=== PATIENT | female | born 1995 | race Caucasian/White ===

== ENCOUNTER 2023-09-14 14:33 | Emergency (ER) | payer BC, SELFPAY ==
[2023-09-14 14:35] VITALS: BP 150/91
[2023-09-14 14:55] LABS: % Basophils 0.5 % (0-2); % Eosinophils 0.4 % (0-6); % Immature Granulocytes 0.4 % (0-0.5); % Monocytes 5.9 % (1.7-9.3); % Neutrophils 79.8 % (42.2-75.2); Absolute Basophils 0.1 10^3/uL (0-0.2); Absolute Eosinophils 0.1 10^3/uL (0-0.7); Absolute Immature Granulocytes 0.1 10^3/uL (0-0.05); Absolute Lymphocytes 2.1 10^3/uL (1.2-3.4); Absolute Neutrophils 12.9 10^3/uL (1.4-6.5); Hematocrit 42.3 % (37.0-47.0); Hemoglobin 13.5 g/dL (12.0-16.0); Mean Corp Hgb Conc. 31.9 g/dL (33.0-37.0); Mean Corpuscular Hgb 26.3 pg (27.0-31.0); Mean Corpuscular Volume 82.3 fL (81.0-99.0); Nucleated Red Blood Cells % 0 %; Platelet Count 333 10^3/uL (130-400); Red Blood Cell Count 5.14 10^6/uL (4.20-5.40); Red Cell Dist. Width 14.6 % (11.5-14.5); Urine Albumin 2+ (Neg - Trace); Urine Bilirubin Negative (Negative); Urine Character Clear (Clear); Urine Color Yellow; Urine Glucose Negative (Negative); Urine Ketone Negative (Negative); Urine Leukocyte 2+ (Negative); Urine Nitrite Negative (Negative); Urine Occult Blood 1+ (Negative); Urine Specific Gravity 1.025 (<1.030); Urine Urobilinogen Negative (Neg - 1+); White Blood Cell Count 16.2 10^3/uL (4.8-10.8)
[2023-09-14 15:03] LABS: HCG, Serum Qualitative Screen Negative
[2023-09-14 15:06] LABS: ALT (SGPT) 26 U/L (0-35); AST (SGOT) 21 U/L (14-36); Albumin 4.1 g/dl (3.5-5.0); Alkaline Phosphatase 69 U/L (38-126); Blood Urea Nitrogen 13 mg/dl (7-17); Calcium 9.1 mg/dl (8.4-10.2); Carbon Dioxide 26 mmol/L (22-30); Chloride 106 mmol/L (98-107); Glucose 90 mg/dl (70-99); Potassium 3.7 mmol/L (3.5-5.1); Sodium 138 mmol/L (135-145); Total Bilirubin 0.3 mg/dl (0.2-1.3); Total Protein 6.7 g/dl (6.3-8.2); eGFR > 60.00
[2023-09-14 15:15] LABS: Urine Squamous Cell 16-20 /LPF (Few); Urine Urothelial Cell 0-2 /LPF (FEW)
[2023-09-14 15:16] LABS: Urine Bacteria Moderate (Negative); Urine Red Blood Cell 0-2 /HPF (0-2); Urine White Cell 30-40 /HPF (0-5)
--- NOTE | 2023-09-14 15:55 | ED.GENMED ---
History of Present Illness
General
Chief Complaint: Flank Pain
Source: patient
Exam Limitations: none
Time Seen by Provider: 09/14/23 15:38
Nursing documentation reviewed up to this point in time: agreed with
Travel History
Have you had any contact with someone who has COVID-19?: No
Do you have any symptoms of coronavirus? Fever > 100 degrees, chills, cough, shortness of breath, sore throat, loss of taste or smell, muscle aches, or headache?: No
History of Present Illness
History of Present Illness:
Patient to ED with complaint of left flank pain. Pain started this AM althought she reports feeling nauseated yesterday. No fever/chills. Has a history of kidney stones and pain feels the same. Follows with urology here. Brought self to ED for
eval.
Past History
Past History
ED Past Medical History: Psychiatric (Anxiety) and Other (Kidney stones, PCOS)
ED Past Surgical History: None
Social History
Tobacco: Non-smoker
Alcohol: None
Drug: None
Personal: Single
Living: with family
Employment: Employed
Family History
Family History: Other (Noncontributory)
Review of Systems
Review of Systems
Allergies reviewed?: Yes
All Other Systems: ROS reviewed and negative except as documented in HPI and ROS
Constitutional: Reports no symptoms
EENT: Reports no symptoms
Respiratory: Reports no symptoms
Cardiac: Reports no symptoms
ABD/GI: Reports nausea
: Reports flank pain
Musculoskeletal: Reports no symptoms
Skin: Reports no symptoms
Neurological: Reports no symptoms
Phy Exam
General Physical Exam
General Presentation: well appearing and no apparent distress
General age: appears stated age
General Skin: warm and dry
General Habitus: normal
General Mental: alert
Gastrointestinal Exam
Gastrointestinal Exam: normal bowel sounds, non tender, soft and no organomegaly
Musculoskeletal Exam
Musculoskeletal Exam: full ROM
Skin Exam
Skin Exam: normal color, warm/dry and no rash
Psychiatric Exam
Psychiatric Exam: normal mood/affect
Course
Orders/Labs/Results
Orders:
Orders
09/14/23 14:38
Test Result ONCE
09/14/23 14:43
Complete Blood Count/With Diff Urgent
Comprehensive Metabolic Panel Urgent
HCG, Serum Qualitative Screen Urgent
Urinalysis Reflex To Culture Urgent
Date Specimen was Collected: 09/14/23
Time Specimen was Collected: 14:38
Urine Microscopic Reflex Cult Urgent
Urine Culture Urgent
LUZ MARIA Source: U
Specimen Description:
Date Specimen was Collected: 09/14/23
Time Specimen was Collected: 14:38
09/14/23 15:50
CT Abd/pel Without Iv Or Oral Urgent
Comment:
Reason For Exam: left flank pain, kidney stone hx
09/14/23 18:25
Phenazopyridine HCl [Pyridium] 200 mg PO NOW STA
09/14/23 18:44
Ciprofloxacin HCl [Cipro] 250 mg PO NOW STA
Abnormal Lab Results
09/14/23
14:43
WBC 16.2 H 10^3/uL
(4.8-10.8)
MCH 26.3 L pg
(27.0-31.0)
MCHC 31.9 L g/dL
(33.0-37.0)
RDW 14.6 H %
(11.5-14.5)
MPV 12.0 H fL
(7.4-10.4)
Abs Immat Gran (auto) 0.1 H 10^3/uL
(0-0.05)
Absolute Neuts (auto) 12.9 H 10^3/uL
(1.4-6.5)
Absolute Monos (auto) 1.0 H 10^3/uL
(0.1-0.6)
Neutrophils % 79.8 H %
(42.2-75.2)
Lymphocytes % 13.0 L %
(20.5-51.1)
Ur Occult Blood Reflex 1+ A
(Negative)
Leukocyte Esterase Rfl 2+ A
(Negative)
Urine WBC (Reflex) 30-40 A /HPF
(0-5)
Urine Bacteria (Reflex) Moderate A
(Negative)
Urine Albumin (Reflex) 2+ A
(Neg - Trace)
09/14/23 14:43
09/14/23 14:43
Vital Signs
Initial and Last Documented VS:
Initial Vital Signs
Temp Pulse Resp BP Pulse Ox
97.9 F 92 20 150/91 97
09/14/23 14:35 09/14/23 14:35 09/14/23 14:35 09/14/23 14:35 09/14/23 14:35
Last Documented Vital Signs
Temp Pulse Resp BP Pulse Ox
97.9 F 92 20 150/91 97
09/14/23 14:35 09/14/23 14:35 09/14/23 14:35 09/14/23 14:35 09/14/23 14:35
*Radiology
Radiology exam reviewed: radiology read reviewed
*Pulse Oximetry
Patient hypoxic: no
*Critical Care Note
Total Time (30-74mins, 75-104mins- exclusive of procedures): Not Applicable
ED Attending Note
-
Portions of this chart may have been created with voice recognition software.� Occasional wrong word or��sound alike� substitutions may have occurred due to the inherent limitations of voice recognition software.
Discharge Plan
Departure
Patient Disposition: Home (Routine Discharge)
Date of Disposition: 09/14/23
Time of Disposition: 18:21
Patient with high blood pressure during this ER visit?: No
Condition: Good
Covid-19: Not Applicable
Discharge Problem:
UTI (urinary tract infection)
Instructions: Urinary Tract Infection, Adult ED
Prescriptions:
New
ciprofloxacin HCl [Cipro] 250 mg tablet
250 mg PO BID Qty: 10 0RF
phenazopyridine [Pyridium] 200 mg tablet
200 mg PO TID PRN (Reason: Pain) Qty: 6 0RF
No Action
escitalopram oxalate 20 MG tablet
20 mg PO DAILY
iron, carbonyl [Iron Chews] 15 MG tablet,chewable
65 mg PO DAILY
medroxyprogesterone [Provera] 10 mg tablet
10 mg PO BID Qty: 20 0RF
Referrals:
Tracey Martinez CRNP [Family Provider] - Follow up in 2-3 days
Activity Restrictions/Additional Instructions:
Return to the emergency department immediately for any changes in/worsening of your symptoms.
Interventions
Interventions:
*Risk Screen - Suicide Last Done: 09/14/23 18:13
*General Assessment Last Done: 09/14/23 18:13
*Neglect/Abuse Screening Last Done: 09/14/23 18:13
ED- Fall Risk Assessment Last Done: 09/14/23 18:49
*ED COVID-19 Vaccine History Last Done: 09/14/23 14:35
*Nursing Disposition Last Done: 09/14/23 18:49
ST-Hwdsey-Ektvgrwwau Assessment Last Done: 09/14/23 18:13
ED-Female Genitourinary Assessment Last Done: 09/14/23 18:13
Discharge Date and Time
Discharge Date/Time: 09/14/23 18:50
Print Language: CZECH
== END 2023-09-14 18:50 | disposition home or self-care (01) ==
LOC: EMR 14:33
PROVIDERS: EMERGENCY PHYSICIAN Emergency Medicine; FAMILY PHYSICIAN Nurse Practitioner
DX: R10.9 Unspecified abdominal pain (principal)
CPT/HCPCS: 99284; 74176; 80053; 81003; 81015; 84703; 85025; 87086

== ENCOUNTER 2024-07-25 17:46 | Emergency (ER) | payer BC, SELFPAY ==
[2024-07-25 17:48] VITALS: BP 155/112
[2024-07-25 18:08] LABS: Urine Albumin 3+ (Neg - Trace); Urine Bilirubin Negative (Negative); Urine Character Slightly Cloudy (Clear); Urine Color Yellow; Urine Glucose Negative (Negative); Urine Ketone Negative (Negative); Urine Leukocyte 3+ (Negative); Urine Nitrite Negative (Negative); Urine Occult Blood 1+ (Negative); Urine Urobilinogen Negative (Neg - 1+); Urine pH 6.5 (5.0-9.0)
[2024-07-25 18:18] LABS: Urine Squamous Cell >30 /LPF (Few)
[2024-07-25 18:20] LABS: Urine Bacteria Few (Negative); Urine White Cell 26-30 /HPF (0-5)
[2024-07-25 18:22] LABS: Urine Red Blood Cell 0-2 /HPF (0-2)
[2024-07-25 18:23] LABS: % Basophils 0.4 % (0-2); % Eosinophils 0.6 % (0-6); % Immature Granulocytes 0.3 % (0-0.5); % Lymphocytes 17.3 % (20.5-51.1); % Monocytes 7.6 % (1.7-9.3); % Neutrophils 73.8 % (42.2-75.2); Absolute Basophils 0.1 10^3/uL (0-0.2); Absolute Eosinophils 0.1 10^3/uL (0-0.7); Absolute Monocytes 0.9 10^3/uL (0.1-0.6); Absolute Neutrophils 8.4 10^3/uL (1.4-6.5); Hematocrit 46.1 % (37.0-47.0); Hemoglobin 14.8 g/dL (12.0-16.0); Mean Corp Hgb Conc. 32.1 g/dL (33.0-37.0); Mean Corpuscular Hgb 27.5 pg (27.0-31.0); Mean Corpuscular Volume 85.7 fL (81.0-99.0); Mean Platelet Volume 12.1 fL (7.4-10.4); Nucleated Red Blood Cells % 0 %; Platelet Count 274 10^3/uL (130-400); Red Blood Cell Count 5.38 10^6/uL (4.20-5.40); Red Cell Dist. Width 13.5 % (11.5-14.5); White Blood Cell Count 11.4 10^3/uL (4.8-10.8)
[2024-07-25 18:42] LABS: ALT (SGPT) 70 U/L (0-35); AST (SGOT) 33 U/L (14-36); Alkaline Phosphatase 75 U/L (38-126); Blood Urea Nitrogen 13 mg/dl (7-17); Calcium 9.6 mg/dl (8.4-10.2); Carbon Dioxide 28 mmol/L (22-30); Chloride 102 mmol/L (98-107); Glucose 83 mg/dl (70-99); Potassium 3.8 mmol/L (3.5-5.1); Sodium 138 mmol/L (135-145); Total Bilirubin 0.6 mg/dl (0.2-1.3); Total Protein 6.5 g/dl (6.3-8.2); eGFR > 60.00
[2024-07-25] MEDS: ROCEPHIN 1000 MG IV (21:19)
--- NOTE | 2024-07-25 21:48 | ED.GENMED ---
History of Present Illness
General
Chief Complaint: Flank Pain
Time Seen by Provider: 07/25/24 20:02
History of Present Illness
History of Present Illness:
29-year-old female presents the emergency department for evaluation of lower urinary tract voiding symptoms associate with right flank pain ongoing for the past week. She was seen at urgent care earlier in the onset of symptoms and was diagnosed
with a UTI, started on Cipro. She followed up the following day where she was noted to have slight increase in her serum creatinine, thus ciprofloxacin was discontinued in favor of Bactrim. She then received a phone call today informing her that
her urine culture was positive for strep B given her amoxicillin allergy was encouraged to come to the emergency department for alternative antibiotic therapy. Denies any fevers or chills. No hematuria. Has a past history of kidney stones but
states symptoms are distinctly different
Past History
Past History
ED Past Medical History: Psychiatric (Anxiety) and Other (Kidney stones, PCOS)
ED Past Surgical History: None
Social History
Tobacco: Non-smoker
Alcohol: None
Drug: None
Personal: Single
Living: with family
Employment: Employed
Family History
Family History: Other (Noncontributory)
Review of Systems
Review of Systems
Allergies reviewed?: Yes
All Other Systems: ROS reviewed and negative except as documented in HPI and ROS
Phy Exam
Physical Exam
Physical Exam:
GEN: Well appearing, NAD, WDWN
HEENT: Oral mucosa moist, no scleral icterus
Cardiac: Regular rate and rhythm, no murmurs
Lung: No respiratory distress, no tachypnea
MSK: No gross deformity or injuries
Skin: Good color, no pallor or jaundice, no rashes
Neuro: AO x3, moves all extremities freely
Psych: Calm, cooperative
Course
Orders/Labs/Results
Orders:
Orders
07/25/24 18:01
Urinalysis Reflex To Culture Urgent
Date Specimen was Collected: 07/25/24
Time Specimen was Collected: 17:52
Urine Microscopic Reflex Cult Urgent
Urine Culture Urgent
LUZ MARIA Source: U
Specimen Description:
Date Specimen was Collected: 07/25/24
Time Specimen was Collected: 17:52
07/25/24 18:03
Complete Blood Count/With Diff Urgent
Comprehensive Metabolic Panel Urgent
07/25/24 20:33
CefTRIAXone [Rocephin] 1,000 mg IV NOW STA
Abnormal Lab Results
07/25/24 07/25/24
18:01 18:03
WBC 11.4 H 10^3/uL
(4.8-10.8)
MCHC 32.1 L g/dL
(33.0-37.0)
MPV 12.1 H fL
(7.4-10.4)
Absolute Neuts (auto) 8.4 H 10^3/uL
(1.4-6.5)
Absolute Monos (auto) 0.9 H 10^3/uL
(0.1-0.6)
Lymphocytes % 17.3 L %
(20.5-51.1)
Creatinine 1.1 H mg/dL
(0.6-1.0)
ALT 70 H U/L
(0-35)
Ur Occult Blood Reflex 1+ A
(Negative)
Leukocyte Esterase Rfl 3+ A
(Negative)
Urine WBC (Reflex) 26-30 A /HPF
(0-5)
Urine Bacteria (Reflex) Few A
(Negative)
Urine Albumin (Reflex) 3+ A
(Neg - Trace)
07/25/24 18:03
07/25/24 18:03
Vital Signs
Initial and Last Documented VS:
Initial Vital Signs
Temp Pulse Resp BP Pulse Ox
98.1 F 82 18 155/112 98
07/25/24 17:48 07/25/24 17:48 07/25/24 17:48 07/25/24 17:48 07/25/24 17:48
Last Documented Vital Signs
Temp Pulse Resp BP Pulse Ox
98.1 F 65 18 146/88 96
07/25/24 17:48 07/25/24 22:03 07/25/24 22:03 07/25/24 22:03 07/25/24 22:03
MDM/Problems Addressed
MDM/Problems Addressed:
Patient's labs are unremarkable, urinalysis suspicious for UTI however large amount of squamous cells indicating likely contamination. Outpatient urine culture growing strep B may also be a skin contaminant. Nevertheless she is symptomatic for
pyelonephritis thus will treat with cephalosporins. The patient was given an IV dose of ceftriaxone as a trial given her penicillin allergy and tolerated this well.
*Critical Care Note
Total Time (30-74mins, 75-104mins- exclusive of procedures): Not Applicable
ED Attending Note
-
Portions of this chart may have been created with voice recognition software.� Occasional wrong word or��sound alike� substitutions may have occurred due to the inherent limitations of voice recognition software.
Discharge Plan
Departure
Patient Disposition: Home (Routine Discharge)
Date of Disposition: 07/25/24
Time of Disposition: 21:55
Patient with high blood pressure during this ER visit?: Yes
Discharge Problem:
Acute pyelonephritis
Instructions: Urinary tract infections in adults
Prescriptions:
New
cefdinir 300 mg capsule
300 mg PO BID 9 Days Qty: 18 0RF
No Action
escitalopram oxalate 20 MG tablet
20 mg PO DAILY
iron, carbonyl [Iron Chews] 15 MG tablet,chewable
65 mg PO DAILY
medroxyprogesterone [Provera] 10 mg tablet
10 mg PO BID Qty: 20 0RF
ciprofloxacin HCl [Cipro] 250 mg tablet
250 mg PO BID Qty: 10 0RF
phenazopyridine [Pyridium] 200 mg tablet
200 mg PO TID PRN (Reason: Pain) Qty: 6 0RF
Referrals:
Tracey Martinez CRNP [Family Provider] -
Interventions
Interventions:
*Risk Screen - Suicide Last Done: 07/25/24 17:48
*General Assessment Last Done: 07/25/24 22:03
*Neglect/Abuse Screening Last Done: 07/25/24 17:48
*ED- Fall Risk Assessment Last Done: 07/25/24 22:03
*ED COVID-19 Vaccine History Last Done: 07/25/24 17:48
*Nursing Disposition Last Done: 07/25/24 22:03
MJ-Sxxujo-Wjcxzccqyh Assessment Last Done: 07/25/24 21:27
ED-Female Genitourinary Assessment Last Done: 07/25/24 21:27
Discharge Date and Time
Discharge Date/Time: 07/25/24 22:03
Print Language: PASHTO
[2024-07-25 22:03] VITALS: BP 146/88
== END 2024-07-25 22:03 | disposition home or self-care (01) ==
LOC: EMR 17:46
PROVIDERS: Emergency Medicine; EMERGENCY PHYSICIAN Emergency Medicine; FAMILY PHYSICIAN Nurse Practitioner
DX: N10 Acute pyelonephritis (principal); Z88.0 Allergy status to penicillin
CPT/HCPCS: 99284; 96374; 80053; 81003; 81015; 85025; 87086

== ENCOUNTER → 2024-12-05 14:24 | Outpatient (REF) | payer OTHER, SELFPAY | LOC: RAD 14:24 | PROVIDERS: ATTENDING PHYSICIAN Internal Medicine; FAMILY PHYSICIAN Internal Medicine | DX: R22.31 Localized swelling, mass and lump, right upper limb (principal) | CPT/HCPCS: 73080 ==

== ENCOUNTER → 2025-02-20 06:38 | Outpatient (REF) | payer OTHER, SELFPAY | LOC: PAVMRI 06:38 | PROVIDERS: ATTENDING PHYSICIAN Family Medicine; FAMILY PHYSICIAN Nurse Practitioner | DX: M51.362 Other intervertebral disc degeneration, lumbar region with discogenic back pain and lower extremity pain (principal); M54.16 Radiculopathy, lumbar region | CPT/HCPCS: 72148 ==